=== PATIENT | male | born 1935 | race Caucasian/White ===

== ENCOUNTER 2016-10-14 15:40 | Emergency (ER) | payer MEDICARE, OTHER ==
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
[2016-10-14 17:04] VITALS: BP 124/70
== END 2016-10-14 16:40 | disposition home or self-care (01) ==
LOC: ED 15:40
DX: S39.92XA Unspecified injury of lower back, initial encounter (principal); V48.5XXA Car driver injured in noncollision transport accident in traffic accident, initial encounter; Y92.414 Local residential or business street as the place of occurrence of the external cause; Y93.9 Activity, unspecified; Y99.9 Unspecified external cause status
CPT/HCPCS: 99283